=== PATIENT | female | born 1955 | race Caucasian/White ===

== ENCOUNTER 2017-05-23 13:39 | Inpatient (IN) | payer MEDICAID ==
[2017-05-23 14:22] LABS: % IMMATURE GRANULYOCYTES 0.5 % (0.0-1.1); ABSOLUTE IMMATURE GRANULOCYTES 0.04 10^3/uL (0.00-0.10); ADD DIFF? NO; ADD MORPH? NO; ADD SCAN? NO; ATYPICAL LYMPHOCYTE FLAG 0 (0-99); FRAGMENT RBC FLAG 20 (0-99); HEMATOCRIT 43.5 % (38.0-47.0); HEMOGLOBIN 13.1 g/dL (12.6-16.3); LEFT SHIFT FLG 0 (0-99); LIPEMIA HEMOLYSIS FLAG 80 (0-99); MEAN CELL HEMOGLOBIN CONCENTR. 30.1 g/dL (32.4-36.7); MEAN CELL VOLUME 73.1 fL (81.5-99.8); MEAN PLATELET VOLUME 8.6 fL (8.7-11.7); PLATELET CLUMPS FLAG 20 (0-99); PLATELET COUNT 373 10^3/uL (150-400); RED BLOOD CELL COUNT 5.95 10^6/uL (4.18-5.33); RED CELL DISTRIBUTION WIDTH 18.6 % (11.5-15.2)
[2017-05-23] MEDS ORDERED: ONDANSETRON 4 MG/2 ML VIAL IVP ONE (14:31)
--- NOTE | 2017-05-23 14:31 | EDPHY ---
General - History Smoking Status: Former smoker Narrative: CHIEF COMPLAINT: Nausea, abdominal pain HISTORY OF PRESENT ILLNESS: Patient complains of several days of abdominal pain and nausea. She cannot tell me when this started. She says it has been nonstop, constant. Moderate to severe. The nausea is intractable. No vomiting though. Subjective fever. No chest pain. No shortness of breath. No urinary complaints no trauma or injury. Patient has very poor historian and cannot provide any other details of her complaint. She arrives by EMS. REVIEW OF SYSTEMS: Ten systems reviewed and are negative unless otherwise noted in the HPI PAST MEDICAL HISTORY: Extensive. Reviewed PAST SURGICAL HISTORY: Patient does not recall her surgical history SOCIAL HISTORY: Nonsmoker. Previous in addition to pain medication on methadone. Resides at [facility] in assisted living FAMILY HISTORY: Noncontributory EXAMINATION General Appearance: Alert, no distress Head: normocephalic, atraumatic Eyes: Pupils equal and round, no conjunctival pallor or injection ENT, Mouth: Mucous membranes moist. Airway patent. Uvula midline Neck: Normal inspection, supple, non-tender Respiratory: Lungs are clear to auscultation. No wheezing, rhonchi or crackles Cardiovascular: Regular rate and rhythm. Gastrointestinal: Abdomen is soft and nondistended. There is tenderness in the epigastrium and upper quadrants. No guarding. No distention. No tympany. No rigidity. Back: non-tender, no bony abnormalities Neurological: Alert to person, place and time. Disoriented to scenario. Nonfocal. Strength symmetric Skin: Warm and dry, no rash no petechiae or purpura Extremities: Nontender, no pedal edema Psychiatric: Mood and affect normal DIFFERENTIAL DIAGNOSES: Including but not limited to pancreatitis, colitis, diverticulitis, enteritis, gastritis, cholecystitis, cholelithiasis MDM: 2:30 p.m. Abdominal pain and the patient with history of pancreatitis. She is guarding the epigastrium, thus I have ordered CT scan abdomen and pelvis. She is in no acute distress. 3:30 p.m. Patient re-evaluated. She has been asking multiple times for nausea medication. I have not ordered any as she has a borderline prolonged QT on the monitor as well as having received 3 doses of Zofran within the past 6 hours. 4:30 p.m. Case discussed with radiologist Dr. Albarran. CT findings as documented in his note were discussed. This includes new common bile duct dilatation of uncertain etiology. Patient continues to complain of nausea but no active vomiting. Vital signs remained stable. Given the chronic appearance, ongoing pain I will discuss with hospitalist for admission after troponin results. 4:55 p.m. Patient continues to complain of nausea. She has had max dose of Zofran as well as promethazine. Troponin is negative. She remains awake alert no acute distress. Given ongoing pain and nausea, CBD dilatation, I will proceed with admission to the hospital from the ER for pain control and nausea control and further workup of common bile duct dilatation. 5:04 p.m. Case discussed with Dr. Mckenzie. Patient has been admitted to her service. She recommends GI consultation. I agree with this and GI has been paged. 5:35 p[address] At this time Dr. Bradley will assume care of the patient. This is pending GI consultation. The patient has already been admitted in stable condition pain EKG interpretation: Dr. Bradley (Sanjay Butler) Medical Decision Making: I evaluated and participated in the management of the patient. I also evaluated the patient independently. My co-signature indicates that I have reviewed this chart and I agree with the findings and plan of care as documented. My personal H&P findings include: 61-year-old female with a history of chronic pancreatitis on methadone as well as morphine for pain presents with difficult to control nausea. She has received Zofran, Phenergan and Ativan in the emergency department had received Compazine prior to admission. On examination the patient has mild epigastric tenderness to deep palpation with no guarding or rebound. Laboratory evaluation demonstrates a normal lipase and normal liver function test. CT scan demonstrates increased size of the common bile duct which may be consistent with status post cholecystectomy versus stricture at the pappilla. Patient's course was discussed with the hospitalist service. It was also discussed with Dr. Uriah Ferguson from Gastroenterology. Given the patient's difficult to control symptoms, she was admitted to the hospital for further evaluation as well as treatment of her nausea, abdominal pain, and IV hydration. (Crystal Bradley) - Objective Vital Signs: Initial Vital Signs Temperature (C) 100.0 F 05/23/17 13:45 Heart Rate 75 05/23/17 13:45 Respiratory Rate 22 H 05/23/17 13:45 Blood Pressure 188/102 H 05/23/17 13:45 O2 Sat (%) 94 05/23/17 13:45 O2 Delivery Mode Room Air O2 (L/minute) 2 Allergies/Adverse Reactions: Penicillins Allergy (Unknown, Verified 02/16/16 18:52) Sulfa (Sulfonamide Antibiotics) Allergy (Unknown, Verified 02/16/16 18:52) Home Medications: Medication Instructions Recorded Acetaminophen [Tylenol 325mg (*)] 650 mg PO Q6 PRN 05/23/17 Baclofen [Baclofen 10 mg (*)] 10 mg PO QID PRN 05/23/17 Bisacodyl [Bisacodyl (*)] 10 mg PO PRN PRN 05/23/17 Bisacodyl [Dulcolax] 10 mg RC DAILY PRN 05/23/17 Calcium Carbonate [Tums 500MG (*)] 1,000 mg PO DAILY PRN 05/23/17 Cetirizine [ZyrTEC 10 mg (*)] 10 mg PO DAILY PRN 05/23/17 Fluticasone Nasal [Flonase Nasal 2 sprays NASAL BID PRN 05/23/17 [place] (RX)] Furosemide [Lasix 20 MG (*)] 20 mg PO DAILY 05/23/17 LORazepam [Lorazepam] 1 mg PO Q4 PRN 05/23/17 Loperamide HCl [Loperamide] 2 mg PO PRN PRN 05/23/17 Lubiprostone [Amitiza 24 mcg (*)] 24 mcg PO BID PRN 05/23/17 Methadone HCl [Methadone 5 mg (*)] 40 mg PO TID 05/23/17 Methadone HCl [Methadone HCl 10 mg 25 mg TX TID PRN 05/23/17 (*)] Methenamine Mandelate [METHENAMINE 0.5 gm PO BID PRN 05/23/17 MANDELATE] Nystatin Powder [Mycostatin Powder 1 davis PAREN TID PRN 05/23/17 (RX)] Omeprazole [Prilosec 20 mg] 40 mg PO DAILY 05/23/17 Ondansetron Odt [Zofran Odt 4 mg 4 mg PO Q4 PRN 05/23/17 (*)] Polyethylene Glycol 3350 [Miralax 17 gm PO BID 05/23/17 17 gm (*)] Polyvinyl Alcohol [Artificial 1 drop EACHEYE QID PRN 05/23/17 Tears] Prochlorperazine Maleate 10 mg PO Q6 PRN 05/23/17 [Compazine 10mg (*)] Sennosides/Docusate Sodium 2 each PO BID 05/23/17 [Senokot-S (OTC)] Sertraline HCl [Zoloft 50mg (*)] 50 mg PO HS 05/23/17 Zolpidem Tartrate [Ambien 5MG (*)] 5 mg PO HS 05/23/17 guaiFENesin [Guaifenesin] 400 mg PO Q4 PRN 05/23/17 morphINE IR [morphINE IR 30 mg (*)] 60 mg PO Q3 PRN 05/23/17 Laboratory Results: Laboratory Results 05/23/17 14:10 05/23/17 14:10 Medications Given: Baclofen (Baclofen) 10 mg PO QID PRN PRN Reason: MUSCLE SPASMS Stop: 11/19/17 19:50 Last Admin: 05/24/17 16:07 Dose: 10 mg Cetirizine HCl (Zyrtec) 10 mg PO DAILY PRN PRN Reason: ALLERGY Stop: 11/19/17 19:50 Last Admin: 05/24/17 16:07 Dose: 10 mg Enoxaparin Sodium (Lovenox) 40 mg SC DAILY [facility] Stop: 11/20/17 08:59 Last Admin: 05/24/17 09:11 Dose: 40 mg Fluticasone Propionate (Flonase Nasal [place]) 2 sprays NS BID PRN PRN Reason: ALLERGIES Stop: 11/19/17 19:50 Last Admin: 05/24/17 09:11 Dose: 1 spray Sodium Chloride (Ns) 1,000 mls @ 125 mls/hr IV CONT FIDEL Stop: 11/19/17 17:29 Last Admin: 05/24/17 12:10 Dose: 1,000 mls Lorazepam (Ativan) 1 mg PO Q4 PRN PRN Reason: Agitation Stop: 11/19/17 19:50 Last Admin: 05/23/17 20:24 Dose: 1 mg Methadone HCl (Methadone Hcl) 40 mg PO TID FIDEL Stop: 06/02/17 21:59 Last Admin: 05/24/17 16:07 Dose: 40 mg Morphine Sulfate (Morphine) 1 - 2 mg IVP Q4HRS PRN PRN Reason: Pain, Severe Unable to Take PO Stop: 06/02/17 17:18 Last Admin: 05/24/17 12:10 Dose: 2 mg Ondansetron HCl (Zofran) 4 mg IVP Q4HRS PRN PRN Reason: Nausea/Vomiting, Can't Take PO Stop: 11/19/17 17:18 Last Admin: 05/23/17 19:41 Dose: 4 mg Pantoprazole Sodium (Protonix) 40 mg PO DAILY FIDEL Stop: 11/20/17 08:59 Last Admin: 05/24/17 16:07 Dose: 40 mg Polyethylene Glycol (Miralax) 17 gm PO BID FIDEL Stop: 11/19/17 20:59 Last Admin: 05/23/17 20:52 Dose: Not Given Senna/Docusate Sodium (Senokot-S) 2 tab PO BID FIDEL Stop: 11/19/17 20:59 Last Admin: 05/23/17 20:24 Dose: 2 tab Sertraline HCl (Zoloft) 50 mg PO HS FIDEL Stop: 11/19/17 20:59 Last Admin: 05/23/17 20:24 Dose: 50 mg Zolpidem Tartrate (Ambien) 5 mg PO HS [facility] Stop: 11/19/17 20:59 Last Admin: 05/23/17 20:24 Dose: 5 mg Discontinued Medications Sodium Chloride (Ns) 500 mls @ 500 mls/hr IV ONCE ONE Stop: 05/23/17 17:26 Last Admin: 05/23/17 16:28 Dose: 500 mls Potassium Chloride (Potassium Cl 10 Meq (Premix)) 100 mls @ 100 mls/hr IV Q1H FIDEL Stop: 05/23/17 23:09 Last Admin: 05/23/17 23:17 Dose: 100 mls Potassium Chloride (Potassium Cl 10 Meq (Premix)) 100 mls @ 50 mls/hr IV Q2H FIDEL Stop: 05/24/17 13:35 Last Admin: 05/24/17 13:09 Dose: 100 mls Lorazepam (Ativan Injection) 0.5 mg IVP EDNOW ONE Stop: 05/23/17 16:41 Last Admin: 05/23/17 16:59 Dose: 0.5 mg Morphine Sulfate (Morphine) 2 mg IVP EDNOW ONE Stop: 05/23/17 14:32 Last Admin: 05/23/17 14:44 Dose: 2 mg Ondansetron HCl (Zofran) 4 mg IVP EDNOW ONE Stop: 05/23/17 14:32 Last Admin: 05/23/17 14:43 Dose: 4 mg Promethazine HCl (Phenergan) 12.5 mg IVP ONCE ONE Stop: 05/23/17 16:23 Last Admin: 05/23/17 16:28 Dose: 12.5 mg Departure - Departure Disposition: [facility] Acute Clinical Impression: Epigastric pain, Nausea, Common bile duct dilatation Condition: Good
[2017-05-23 14:42] LABS: ALANINE AMINOTRANSFERASE 25 IU/L (9-52); ALBUMIN 5.6 g/dL (3.5-5.0); ALKALINE PHOSPHATASE 109 IU/L (38-126); ANION GAP 27 mEq/L (8-16); ASPARTATE AMINOTRANSFERASE 35 IU/L (14-46); BILIRUBIN,TOTAL 0.9 mg/dL (0.1-1.4); BILIRUBIN-CONJUGATED 0.4 mg/dL (0.0-0.5); BILIRUBIN-UNCONJUGATED 0.5 mg/dL (0.0-1.1); CARBON DIOXIDE 17 mEq/l (22-31); CHLORIDE 93 mEq/L (97-110); GLOMERULAR FILTRATION RATE 56; GLUCOSE 138 mg/dL (70-100); POTASSIUM 3.4 mEq/L (3.5-5.2); SODIUM 137 mEq/L (134-144); TOTAL PROTEIN 9.3 g/dL (6.3-8.2)
[2017-05-23] MEDS ORDERED: IOPAMIDOL (ISOVUE-300) 100 ML BTL ONE (15:12)
[2017-05-23 15:34] LABS: COLOR YELLOW; LEUKOCYTE ESTERASE,URINE NEGATIVE (NEGATIVE); NITRITE,URINE NEGATIVE (NEGATIVE)
[2017-05-23] MEDS ORDERED: PROMETHAZINE HCL 25 MG/ML INJ IVP ONE (16:22)
[2017-05-23] MEDS ORDERED: NS 500 ML IV ONE (16:27)
--- NOTE | 2017-05-23 16:31 | CPEKG ---
Heart Rate: 76 RR Interval: 789 P-R Interval: 180 QRSD Interval: 98 QT Interval: 436 QTC Interval: 491 P Erie: 84 QRS Erie: 74 T Wave Erie: -57 EKG Severity - ABNORMAL ECG - EKG Impression: SINUS RHYTHM EKG Impression: PROBABLE LEFT ATRIAL ABNORMALITY EKG Impression: BORDERLINE REPOL ABNORMALITY, DIFFUSE LEADS EKG Impression: BORDERLINE PROLONGED QT INTERVAL Electronically Signed By: Ryan Gilman 24-May-2017 12:20:46
[2017-05-23] MEDS ORDERED: LORazepam 2 MG/ML INJ IVP ONE (16:40)
[2017-05-23] MEDS ORDERED: ACETAMINOPHEN 650 MG SUPP PR PRN (17:19)
[2017-05-23] MEDS ORDERED: ONDANSETRON DISINTEGRATING 4 MG TAB PO PRN (17:19)
[2017-05-23] MEDS: NS 1,000 ML IV SCH (19:40)
[2017-05-23] MEDS: ONDANSETRON 4 MG/2 ML VIAL IVP PRN (19:41)
[2017-05-23] MEDS ORDERED: BISACODYL 10 MG SUPP PR PRN (19:51)
[2017-05-23] MEDS ORDERED: LUBIPROSTONE 24 MCG CAP PO PRN (19:51)
[2017-05-23] MEDS ORDERED: FLUTICASONE NASAL 120 SPRAYS/16 GM MDI NS PRN (19:51)
[2017-05-23] MEDS ORDERED: guaiFENesin 200 MG/10 ML UDL PO PRN (19:51)
[2017-05-23] MEDS ORDERED: morphINE IR 30 MG TAB PO PRN (19:51)
[2017-05-23] MEDS ORDERED: BISACODYL 5 MG EC TAB PO PRN (19:51)
[2017-05-23] MEDS ORDERED: NYSTATIN POWDER 15 GM BTL TP PRN (19:51)
[2017-05-23] MEDS ORDERED: CETIRIZINE 10 MG TAB PO PRN (19:51)
[2017-05-23] MEDS ORDERED: CALCIUM CARBONATE 500 MG CHEWABLE TAB PO PRN (19:51)
[2017-05-23] MEDS ORDERED: TEARS/DEXTRAN 70/HYPROMELLOSE 15 ML OPHT.BTL EACHEYE PRN (20:02)
[2017-05-23] MEDS ORDERED: PROTOCOL POTASSIUM 1 DOSE MISC PRN (20:07)
[2017-05-23] MEDS: LORazepam 1 MG TAB PO PRN (20:24)
[2017-05-23] MEDS: ZOLPIDEM TARTRATE 5 MG TAB PO SCH (20:24)
[2017-05-23] MEDS: METHADONE HCL 10 MG TAB PO SCH (20:24)
[2017-05-23] MEDS: SENNOSIDES/DOCUSATE SODIUM TAB PO SCH (20:24)
[2017-05-23] MEDS: POTASSIUM Cl (KCl) 100 ML IV SCH ×3 (20:24→23:17)
[2017-05-23] MEDS: SERTRALINE HCL 50 MG TAB PO SCH (20:24)
[2017-05-23] MEDS: POLYETHYLENE GLYCOL 3350 17 GM PKT PO SCH (20:52)
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
[2017-05-23 20:57] LABS: % SATURATION 6 % (20-55); TOTAL IRON BINDING CAPACITY 590 ug/dL (260-490)
[2017-05-23 21:21] LABS: FERRITIN - BCH 9.6 ng/mL (6.2-264.0)
[2017-05-23 21:55] LABS: POTASSIUM 3.5 mEq/L (3.5-5.2)
[2017-05-24] MEDS: NS 1,000 ML IV SCH ×2 (03:28→12:10)
[2017-05-24 05:38] LABS: % IMMATURE GRANULYOCYTES 0.5 % (0.0-1.1); ABSOLUTE IMMATURE GRANULOCYTES 0.03 10^3/uL (0.00-0.10); ADD DIFF? NO; ADD MORPH? NO; ADD SCAN? NO; ATYPICAL LYMPHOCYTE FLAG 10 (0-99); FRAGMENT RBC FLAG 0 (0-99); HEMATOCRIT 32.1 % (38.0-47.0); HEMOGLOBIN 9.3 g/dL (12.6-16.3); LEFT SHIFT FLG 0 (0-99); LIPEMIA HEMOLYSIS FLAG 70 (0-99); MEAN CELL VOLUME 76.1 fL (81.5-99.8); MEAN PLATELET VOLUME 8.8 fL (8.7-11.7); PLATELET CLUMPS FLAG 0 (0-99); PLATELET COUNT 267 10^3/uL (150-400); RED BLOOD CELL COUNT 4.22 10^6/uL (4.18-5.33)
[2017-05-24 05:59] LABS: ALANINE AMINOTRANSFERASE 24 IU/L (9-52); ALBUMIN 3.3 g/dL (3.5-5.0); ALKALINE PHOSPHATASE 56 IU/L (38-126); ANION GAP 8 mEq/L (8-16); ASPARTATE AMINOTRANSFERASE 19 IU/L (14-46); BILIRUBIN,TOTAL 0.5 mg/dL (0.1-1.4); CALCIUM 9.5 mg/dL (8.5-10.4); CARBON DIOXIDE 25 mEq/l (22-31); CHLORIDE 104 mEq/L (97-110); CREATININE 0.8 mg/dL (0.6-1.0); GLOMERULAR FILTRATION RATE > 60; GLUCOSE 80 mg/dL (70-100); POTASSIUM 3.7 mEq/L (3.5-5.2); SODIUM 137 mEq/L (134-144); TOTAL PROTEIN 5.7 g/dL (6.3-8.2)
[2017-05-24] MEDS ORDERED: ENOXAPARIN 40 MG/0.4 ML SYR SC SCH (09:00)
[2017-05-24] MEDS ORDERED: PANTOPRAZOLE SODIUM 40 MG TAB PO SCH (09:00)
[2017-05-24] MEDS: POTASSIUM Cl (KCl) 100 ML IV SCH ×2 (10:31→13:09)
[2017-05-24] MEDS ORDERED: PEG 3350/NA SULF,BICARB,CL/KCL (GAVILYTE-G) 4000 ML BTL PO ONE ×2 (11:16→16:30)
[2017-05-24] MEDS ORDERED: GADOBUTROL 10 ML VIAL IVP ONE (14:00)
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
--- NOTE | 2017-05-24 15:48 | ASMTCMCOM ---
CM Note CM Note Notes: Pt resides at [facility] and will return when medically stable. LISA w/f. Date Signed: 05/24/2017 03:47 PM Electronically Signed By:Mary Barrios RN
[2017-05-24] MEDS: BACLOFEN 10 MG TAB PO PRN (16:07)
[2017-05-24] MEDS: METHADONE HCL 10 MG TAB PO SCH ×3 (16:07→21:38)
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
[2017-05-24] MEDS: HYDROmorphONE/DILAUDID 1 MG/ML INJ IVP PRN ×2 (17:32→22:56)
[2017-05-24] MEDS: ONDANSETRON 4 MG/2 ML VIAL IVP PRN ×2 (17:48→21:39)
[2017-05-24] MEDS: LORazepam 1 MG TAB PO PRN (18:11)
[2017-05-24] MEDS: POLYETHYLENE GLYCOL 3350 17 GM PKT PO SCH ×2 (18:30→21:39)
[2017-05-24] MEDS: SENNOSIDES/DOCUSATE SODIUM TAB PO SCH ×2 (18:31→21:38)
[2017-05-24] MEDS: PANTOPRAZOLE SODIUM 40 MG in NS 100 ML IV SCH (18:31)
[2017-05-24] MEDS: SERTRALINE HCL 50 MG TAB PO SCH (21:38)
[2017-05-24] MEDS: ZOLPIDEM TARTRATE 5 MG TAB PO SCH (21:38)
[2017-05-25] MEDS: HYDROmorphONE/DILAUDID 1 MG/ML INJ IVP PRN ×4 (00:57→18:19)
[2017-05-25 07:09] LABS: % IMMATURE GRANULYOCYTES 0.2 % (0.0-1.1); ABSOLUTE IMMATURE GRANULOCYTES 0.01 10^3/uL (0.00-0.10); ADD DIFF? NO; ADD MORPH? YES; ADD SCAN? NO; ATYPICAL LYMPHOCYTE FLAG 0 (0-99); FRAGMENT RBC FLAG 0 (0-99); HEMATOCRIT 30.8 % (38.0-47.0); HEMOGLOBIN 8.9 g/dL (12.6-16.3); LEFT SHIFT FLG 0 (0-99); LIPEMIA HEMOLYSIS FLAG 70 (0-99); MEAN CELL HEMOGLOBIN 22.2 pg (27.9-34.1); MEAN CELL VOLUME 76.8 fL (81.5-99.8); MEAN PLATELET VOLUME 8.6 fL (8.7-11.7); PLATELET CLUMPS FLAG 0 (0-99); PLATELET COUNT 212 10^3/uL (150-400); RED BLOOD CELL COUNT 4.01 10^6/uL (4.18-5.33); RED CELL DISTRIBUTION WIDTH 18.1 % (11.5-15.2)
[2017-05-25 07:13] LABS: MEAN CELL HEMOGLOBIN CONCENTR. 28.9 g/dL (32.4-36.7)
[2017-05-25 07:33] LABS: ALANINE AMINOTRANSFERASE 25 IU/L (9-52); ALBUMIN 2.9 g/dL (3.5-5.0); ALKALINE PHOSPHATASE 51 IU/L (38-126); ANION GAP 8 mEq/L (8-16); ASPARTATE AMINOTRANSFERASE 18 IU/L (14-46); BILIRUBIN,TOTAL 0.5 mg/dL (0.1-1.4); CALCIUM 9.1 mg/dL (8.5-10.4); CARBON DIOXIDE 22 mEq/l (22-31); CHLORIDE 106 mEq/L (97-110); CREATININE 0.8 mg/dL (0.6-1.0); GLOMERULAR FILTRATION RATE > 60; GLUCOSE 78 mg/dL (70-100); POTASSIUM 3.2 mEq/L (3.5-5.2); SODIUM 136 mEq/L (134-144); TOTAL PROTEIN 5.3 g/dL (6.3-8.2)
[2017-05-25 08:25] LABS: ELLIPTOCYTES 1+; HYPOCHROMIA 1+; PLATELET ESTIMATE ADEQUATE (ADEQ)
[2017-05-25] MEDS ORDERED: POTASSIUM Cl (KCl) 40 MEQ in D5W 1/2 NS 1,000 ML IV SCH (08:30)
[2017-05-25] MEDS: PANTOPRAZOLE SODIUM 40 MG in NS 100 ML IV SCH ×2 (08:50→20:07)
[2017-05-25] MEDS: METHADONE HCL 10 MG TAB PO SCH ×3 (09:36→20:46)
[2017-05-25] MEDS: POLYETHYLENE GLYCOL 3350 17 GM PKT PO SCH ×3 (09:41→20:07)
[2017-05-25] MEDS ORDERED: fentaNYL 100 MCG/2 ML INJ ONE (11:20)
[2017-05-25] MEDS ORDERED: PROPOFOL/EMULSION 500 MG/50 ML BOTTLE IV ONE (11:21)
[2017-05-25] MEDS ORDERED: LIDOCAINE 2% 5 ML SDV ONE (11:21)
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
[2017-05-25] MEDS ORDERED: ATROPINE SULFATE 1 MG/10 ML SYR ONE (11:45)
[2017-05-25] MEDS ORDERED: NEOSTIGMINE METHYLSULFATE 3 MG/3 ML SYR ONE (11:45)
[2017-05-25] MEDS ORDERED: epHEDrine SULFATE 10 MG/ML SYR ONE (11:46)
--- NOTE | 2017-05-25 11:48 | POSTOPPROG ---
Post Op Note Date of Operation: 05/25/17 Surgeon: Eder Diamond Anesthesiologist: arlette Anesthesia: Other (Specify) (IV general) Pre-op Diagnosis: anemia Post-op Diagnosis: gastritis Indication: anemia Procedure: egd and bx Findings: nml esoph, nl duodenum, moderate gastritis Inf/Abcess present in the surg proc area at time of surgery?: No EBL: Minimal (few ml) Total fluids administered: 300ml LR Complications: post procedure jo cardia that resolved with intervention stable prior to transfer to PACU
[2017-05-25] MEDS ORDERED: fentaNYL 100 MCG/2 ML INJ IVP PRN (12:09)
[2017-05-25] MEDS ORDERED: NALOXONE HCL 0.4 MG/ML INJ IVP PRN (12:09)
[2017-05-25] MEDS ORDERED: MAGNESIUM CITRATE 300 ML BOTTLE PO ONE (13:31)
--- NOTE | 2017-05-25 13:34 | SOAPPROG ---
SOAP Progress Note Assessment/Plan: see full EGD report esophagus = normal stomach = moderate to severe gastritis s/p bx, no ulcer, no mass duodenum = normal rec: clear liquid diet colon prep Eder Diamond M.D. 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
[2017-05-25] MEDS: SENNOSIDES/DOCUSATE SODIUM TAB PO SCH ×2 (13:44→20:07)
[2017-05-25] MEDS ORDERED: PEG 3350/NA SULF,BICARB,CL/KCL (GAVILYTE-G) 4000 ML BTL PO ONE (14:30)
[2017-05-25] MEDS ORDERED: HYDROmorphONE/DILAUDID 2 MG TAB PO PRN (14:57)
--- NOTE | 2017-05-25 15:11 | HOSPPROG ---
Hospitalist Progress Note Assessment/Plan: Assessment: 61-year-old female presents with acute on chronic abdominal pain in the setting of chronic opiate dependency, acute microcytic anemia and gastritis Plan: 1. Abdominal pain. Acute on chronic, unclear if this is 2/2 gastritis vs. left hip vs. scoliosis vs. functional bowel issues -pain somewhat less today after starting ppi bid -continues to have breakthrough and requesting higher doses of dilaudid, has high tolerance, will symptomatically tx since it is unclear if 2/2 gastritis -CT w/o other structural abnormalities -get hip x-ray L to gauge whether severe OA may be contributing 2. Microcytic anemia. Acute, MCV 76, hemoglobin 8.9, iron studies demonstrating iron deficient component -she has historically been macrocytic -gastritis but no ulcers -patient refused colon prep last night, getting colon prep this afternoon and colonoscopy in AM w/ Dr. Diamond -give IV iron today and tomorrow, then PO 3. Hypercalcemia. Acute, most likely secondary to intravascular depletion, has normalized with IV fluids, most likely not the underlying cause of her abdominal discomfort 4. Chronic pain with continuous opiate dependency. Cont scheduled baseline control w/ baseline, PRN dilaudid for breakthrough 5. Elevated blood pressure. Patient with elevated systolic blood pressure in the setting of pain, treat the pain given that is the underlying cause 6. Metabolic Acidosis. Acute, 2/2 GI losses, resolved w/ IVF 7. Hypokalemia. Replete w/ IVF, monitor Diet. Clears, NPO after MN Prophylaxis. High risk patient, SCDs while she is awaiting procedure Code. Do not resuscitate Disposition. Anticipated discharge 05/26, pending w/u of above. Will return to [facility] at discharge High level medical complexity, high risk of worsening morbidity/mortality 2/2 issues outlined above. Subjective: patient reports ongoing abd pain, migrated over to left hip Objective: Vital Signs Temp Pulse Resp BP Pulse Ox 37.1 C 58 L 16 159/116 H 95 05/25/17 14:00 05/25/17 14:00 05/25/17 14:00 05/25/17 14:00 05/25/17 14:00 Laboratory Results 05/25/17 06:33 05/25/17 06:33 05/24/17 05/25/17 05/26/17 05:59 05:59 05:59 Intake Total 1605 300 Output Total 200 0 Balance 1405 300 - Pending Discharge Pending Discharge Within 24 Hours: Yes Pending Discharge Date: 05/26/17 Pending Discharge Time: 11:00 - Physical Exam Constitutional: chronically ill appearing, obese, uncomfortable, No not in pain (pain in L hip) Cardiovascular: tachycardia, No systolic murmur, No irregularly irregular, No edema Respiratory: no respiratory distress, no rales or rhonchi, clear to auscultation Gastrointestinal: normoactive bowel sounds, no palpable masses, tenderness (mid- epigastric area), distension (mild), No guarding Skin: no rashes or abrasions, no fluctuance, no induration Musculoskeletal: other (pain w/ external and internal rotation L hip, tendernes over L troch bursa, tenderness over L groin/hip, negative straight leg raise) Neurologic: AAOx3, sensation intact bilaterally, No weakness, No facial droop Psychiatric: interacting appropriately, not anxious, not encephalopathic, thought process linear ICD10 Worksheet Patient Problems: Problems Problem Status Onset Essential hypertension Active 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
[2017-05-25] MEDS: LIDOCAINE 5% 1 EA PATCH TD SCH (15:31)
--- NOTE | 2017-05-25 17:17 | PDIAF ---
- Diagnosis Diagnosis: left hip chronic femoral neck fracture Code Status: Do Not Resuscitate - Medication Management Discharge Medications: Medications to Continue on Transfer Acetaminophen [Tylenol 325mg (*)] 650 mg PO Q6 PRN 05/23/17 [Last Taken Unknown] Baclofen [Baclofen 10 mg (*)] 10 mg PO QID PRN 05/23/17 [Last Taken Unknown] Bisacodyl [Bisacodyl (*)] 10 mg PO PRN PRN 05/23/17 [Last Taken Unknown] Bisacodyl [Dulcolax] 10 mg RC DAILY PRN 05/23/17 [Last Taken Unknown] Calcium Carbonate [Tums 500MG (*)] 1,000 mg PO DAILY PRN 05/23/17 [Last Taken Unknown] Cetirizine [ZyrTEC 10 mg (*)] 10 mg PO DAILY PRN 05/23/17 [Last Taken Unknown] Fluticasone Nasal [Flonase Nasal [place] (RX)] 2 sprays NASAL BID PRN 05/23/17 [ Last Taken Unknown] Furosemide [Lasix 20 MG (*)] 20 mg PO DAILY 05/23/17 [Last Taken Unknown] LORazepam [Lorazepam] 1 mg PO Q4 PRN 05/23/17 [Last Taken Unknown] Loperamide HCl [Loperamide] 2 mg PO PRN PRN 05/23/17 [Last Taken Unknown] Lubiprostone [Amitiza 24 mcg (*)] 24 mcg PO BID PRN 05/23/17 [Last Taken Unknown ] Methadone HCl [Methadone 5 mg (*)] 40 mg PO TID 05/23/17 [Last Taken Unknown] Methadone HCl [Methadone HCl 10 mg (*)] 25 mg MS TID PRN 05/23/17 [Last Taken Unknown] Methenamine Mandelate [METHENAMINE MANDELATE] 0.5 gm PO BID PRN 05/23/17 [Last Taken Unknown] Nystatin Powder [Mycostatin Powder (RX)] 1 davis PAREN TID PRN 05/23/17 [Last Taken Unknown] Omeprazole [Prilosec 20 mg] 40 mg PO DAILY 05/23/17 [Last Taken Unknown] Ondansetron Odt [Zofran Odt 4 mg (*)] 4 mg PO Q4 PRN 05/23/17 [Last Taken Unknown] Polyethylene Glycol 3350 [Miralax 17 gm (*)] 17 gm PO BID 05/23/17 [Last Taken Unknown] Polyvinyl Alcohol [Artificial Tears] 1 drop EACHEYE QID PRN 05/23/17 [Last Taken Unknown] Prochlorperazine Maleate [Compazine 10mg (*)] 10 mg PO Q6 PRN 05/23/17 [Last Taken Unknown] Sennosides/Docusate Sodium [Senokot-S (OTC)] 2 each PO BID 05/23/17 [Last Taken Unknown] Sertraline HCl [Zoloft 50mg (*)] 50 mg PO HS 05/23/17 [Last Taken Unknown] Zolpidem Tartrate [Ambien 5MG (*)] 5 mg PO HS 05/23/17 [Last Taken Unknown] guaiFENesin [Guaifenesin] 400 mg PO Q4 PRN 05/23/17 [Last Taken Unknown] morphINE IR [morphINE IR 30 mg (*)] 60 mg PO Q3 PRN 05/23/17 [Last Taken Unknown ] Discharge Medications: Refer to the Discharge Home Medication list for PRN reason. - Orders Activity/Weight Bearing Restrictions: wbat. rom as tolerated. no restrictions. f/u prn with ortho - Follow Up Care Current Providers and Referrals: JOB ESTRELLA [Primary Care Provider] - As per Instructions
[2017-05-25] MEDS: SODIUM FERRIC GLUCONAT/SUCROSE 125 MG in NS 100 ML IV SCH (17:31)
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
[2017-05-25] MEDS: SERTRALINE HCL 50 MG TAB PO SCH (20:07)
[2017-05-25] MEDS: ZOLPIDEM TARTRATE 5 MG TAB PO SCH (20:07)
[2017-05-25] MEDS: PATCH REMOVAL 1 EA PATCH TD SCH (20:14)
[2017-05-26] MEDS: HYDROmorphONE/DILAUDID 1 MG/ML INJ IVP PRN (03:46)
[2017-05-26 05:14] LABS: % IMMATURE GRANULYOCYTES 0.2 % (0.0-1.1); ABSOLUTE IMMATURE GRANULOCYTES 0.01 10^3/uL (0.00-0.10); ADD DIFF? NO; ADD MORPH? YES; ADD SCAN? NO; ATYPICAL LYMPHOCYTE FLAG 0 (0-99); FRAGMENT RBC FLAG 0 (0-99); HEMATOCRIT 33.7 % (38.0-47.0); HEMOGLOBIN 9.6 g/dL (12.6-16.3); LEFT SHIFT FLG 0 (0-99); LIPEMIA HEMOLYSIS FLAG 70 (0-99); MEAN CELL VOLUME 77.3 fL (81.5-99.8); MEAN PLATELET VOLUME 8.7 fL (8.7-11.7); PLATELET CLUMPS FLAG 0 (0-99); PLATELET COUNT 219 10^3/uL (150-400); RED BLOOD CELL COUNT 4.36 10^6/uL (4.18-5.33)
[2017-05-26 05:19] LABS: MEAN CELL HEMOGLOBIN CONCENTR. 28.5 g/dL (32.4-36.7)
[2017-05-26 05:29] LABS: ALANINE AMINOTRANSFERASE 24 IU/L (9-52); ALBUMIN 3.2 g/dL (3.5-5.0); ALKALINE PHOSPHATASE 57 IU/L (38-126); ANION GAP 7 mEq/L (8-16); ASPARTATE AMINOTRANSFERASE 18 IU/L (14-46); BILIRUBIN,TOTAL 0.4 mg/dL (0.1-1.4); CALCIUM 9.5 mg/dL (8.5-10.4); CARBON DIOXIDE 25 mEq/l (22-31); CHLORIDE 103 mEq/L (97-110); CREATININE 0.8 mg/dL (0.6-1.0); GLOMERULAR FILTRATION RATE > 60; GLUCOSE 90 mg/dL (70-100); POTASSIUM 3.7 mEq/L (3.5-5.2); SODIUM 135 mEq/L (134-144); TOTAL PROTEIN 5.7 g/dL (6.3-8.2)
[2017-05-26 07:50] LABS: PLATELET ESTIMATE ADEQUATE (ADEQ)
[2017-05-26 07:51] LABS: ELLIPTOCYTES 1+; HYPOCHROMIA 1+; SCHISTOCYTES 1+
[2017-05-26] MEDS: LIDOCAINE 5% 1 EA PATCH TD SCH (08:11)
[2017-05-26] MEDS: METHADONE HCL 10 MG TAB PO SCH ×3 (08:12→21:56)
[2017-05-26] MEDS: PANTOPRAZOLE SODIUM 40 MG in NS 100 ML IV SCH (08:12)
[2017-05-26] MEDS: SENNOSIDES/DOCUSATE SODIUM TAB PO SCH ×2 (08:13→20:02)
[2017-05-26] MEDS: POLYETHYLENE GLYCOL 3350 17 GM PKT PO SCH ×2 (08:13→20:03)
[2017-05-26] MEDS: LORazepam 1 MG TAB PO PRN (09:04)
[2017-05-26] MEDS: SODIUM FERRIC GLUCONAT/SUCROSE 125 MG in NS 100 ML IV SCH (09:04)
[2017-05-26 11:31] VITALS: RESP 16
--- NOTE | 2017-05-26 13:08 | ASMTCMCOM ---
CM Note CM Note Notes: Spoke w/, pt will dc back to [facility] on 05/27, Jodi at notified. Date Signed: 05/26/2017 01:07 PM Electronically Signed By:Mary Barrios RN
[2017-05-26] MEDS ORDERED: SERTRALINE HCL 50 MG TAB PO SCH (13:25)
--- NOTE | 2017-05-26 13:31 | SOAPPROG ---
SOAP Progress Note Assessment/Plan: Assessment: 61-year-old female presents with acute on chronic abdominal pain in the setting of chronic opiate dependency, acute microcytic anemia and gastritis Plan: 1. Abdominal pain. Acute on chronic, unclear if this is 2/2 gastritis vs. left hip fracture vs. scoliosis vs. functional bowel issues -continues to have breakthrough pain and requesting higher doses of dilaudid, has high tolerance, will symptomatically tx since it is unclear if 2/2 gastritis -CT w/o other structural abnormalities -discussed care plan with GI Dr Diamond, will defer colonoscopy to outpt eval and FU with him in the office -advance diet 2. Microcytic anemia. Acute, MCV 76, hemoglobin stable now, iron studies demonstrating iron deficient component -gastritis but no ulcers on EGD, PPI -patient refused colon prep, will defer and do as outpt -give IV iron given, change to PO at discharge 3. Hypercalcemia. Acute, most likely secondary to intravascular depletion, has normalized with IV fluids 4. Chronic pain with continuous opiate dependency. Cont scheduled baseline control w/ baseline, PRN dilaudid for breakthrough. -patient is on high doses of morphine IR (60mg) at home PRN for breakthrough relief of chronic pain. - adjust morphine IR dose range to 30-60mg PRN -trial gabapentin -discussed pain management in general and strongly suggest FU with ortho to see if any surgical or other interventions could help pain -also suggest pain specialist consult and/or physiatry (like [facility]) as has not seen a specialist per yrs per her report 5. HTN -? because of pain levels, but also sustained high throughout stay -start anti-hypertensive and close FU at [facility] to re-eval/adjust meds as needed 6. Metabolic Acidosis. Acute, 2/2 GI losses, resolved w/ IVF 7. Hypokalemia. Replete w/ IVF, monitor 8. chronic femoral neck fracture -appreciate ortho consult -strongly encouraged her to FU with ortho and consider surgery Diet. advance diet as tolerated Prophylaxis. High risk patient, SCDs/TEDs Code. Do not resuscitate Disposition. Anticipated discharge 05/27, pending w/u of above. Will return to [facility] at discharge Subjective: Unable to tolerate colonoscopy prep overnt, says caused too much abd pain. Says 'never' has good pain control, has seen multiple pain med specialists prev , but says this is first time seeing ortho (Dr Holm's note revwd). Says was on lyrica for a long time' but stopped it, ? when she was on hospice. Does feel depressed about pain, life and would like to try other options for pain/ depression. Objective: Vital Signs Temp Pulse Resp BP Pulse Ox 99.3 F 71 16 187/95 H 92 05/26/17 11:28 05/26/17 11:28 05/26/17 11:28 05/26/17 11:42 05/26/17 11:28 Laboratory Results 05/26/17 04:29 05/26/17 04:29 05/25/17 05/26/17 05/27/17 11:59 11:59 11:59 Intake Total 1605 1815 Output Total 200 600 Balance 1405 1215 - Pending Discharge Pending Discharge Within 24 Hours: Yes Pending Discharge Date: 05/27/17 Pending Discharge Time: 11:00 Physical Exam - Physical Exam General Appearance: alert, no apparent distress Respiratory: lungs clear, normal breath sounds Cardiac/Chest: regular rate, rhythm, No edema Abdomen: soft, other (mildly tender throughout), No guarding, No rebound Neuro/Psych: alert, depressed affect ICD10 Worksheet Patient Problems: Problems Problem Status Onset Common bile duct dilatation Acute Epigastric pain Acute Nausea Acute Altered mental status Active Essential hypertension Active Hyponatremia Active 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
--- NOTE | 2017-05-26 13:49 | SOAPPROG ---
SOAP Progress Note Assessment/Plan: see full EGD report esophagus = normal stomach = moderate to severe gastritis s/p bx, no ulcer, no mass duodenum = normal rec: clear liquid diet colon prep Eder Diamond M.D. 05/26/17 13:47 A/P 1) iron def anemia - EGD with some findings that could account for her anemia, but needs colon - eating solid food so colon will be as outpt she will be going home tomorrow Subjective: CC- iron def anemia pt denies abdo pain, eating solid food had colon 8 years ago in [place] and reports was nml Objective: Vital Signs Temp Pulse Resp BP Pulse Ox 37.4 C 71 16 187/95 H 92 05/26/17 11:28 05/26/17 11:28 05/26/17 11:28 05/26/17 11:42 05/26/17 11:28 Laboratory Results 05/26/17 04:29 05/26/17 04:29 05/25/17 05/26/17 05/27/17 05:59 05:59 05:59 Intake Total 1605 1815 Output Total 200 400 200 Balance 1405 1415 -200 CTA S1S2 +BS, soft nt ICD10 Worksheet Patient Problems: Problems Problem Status Onset Common bile duct dilatation Acute Epigastric pain Acute Nausea Acute Altered mental status Active Essential hypertension Active Hyponatremia Active 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
[2017-05-26] MEDS: GABAPENTIN 100 MG CAP PO SCH ×3 (14:50→21:56)
[2017-05-26] MEDS: PANTOPRAZOLE SODIUM 40 MG TAB PO SCH (15:25)
[2017-05-26] MEDS ORDERED: MICONAZOLE NITRATE 45 GM CRTUBE VG SCH ×2 (15:30→21:00)
[2017-05-26] MEDS: LISINOPRIL 20 MG TAB PO SCH (15:38)
[2017-05-26] MEDS: FLUTICASONE NASAL 120 SPRAYS/16 GM MDI NS SCH (20:08)
[2017-05-26] MEDS: PATCH REMOVAL 1 EA PATCH TD SCH (20:53)
[2017-05-26] MEDS: ZOLPIDEM TARTRATE 5 MG TAB PO SCH (21:56)
[2017-05-27 04:12] VITALS: TEMP 99.1
[2017-05-27] MEDS: BACLOFEN 10 MG TAB PO PRN (06:19)
[2017-05-27 08:21] VITALS: BP 167/99; PULSE 66; O2SAT 94
[2017-05-27] MEDS: LISINOPRIL 20 MG TAB PO SCH (08:34)
[2017-05-27] MEDS: METHADONE HCL 10 MG TAB PO SCH (08:34)
[2017-05-27] MEDS: SENNOSIDES/DOCUSATE SODIUM TAB PO SCH (08:34)
[2017-05-27] MEDS: PANTOPRAZOLE SODIUM 40 MG TAB PO SCH (08:35)
[2017-05-27] MEDS: GABAPENTIN 100 MG CAP PO SCH (08:35)
[2017-05-27] MEDS: LIDOCAINE 5% 1 EA PATCH TD SCH (08:36)
[2017-05-27] MEDS: FLUTICASONE NASAL 120 SPRAYS/16 GM MDI NS SCH (08:42)
[2017-05-27] MEDS: POLYETHYLENE GLYCOL 3350 17 GM PKT PO SCH (08:42)
--- NOTE | 2017-05-27 12:16 | PDIAF ---
- Diagnosis Diagnosis: left hip chronic femoral neck fracture, chronic pain/opioid use Code Status: Do Not Resuscitate - Medication Management Discharge Medications: Medications to Continue on Transfer Acetaminophen [Tylenol 325mg (*)] 650 mg PO Q6 PRN 05/23/17 [Last Taken Unknown] Baclofen [Baclofen 10 mg (*)] 10 mg PO QID PRN 05/23/17 [Last Taken Unknown] Bisacodyl [Bisacodyl (*)] 10 mg PO PRN PRN 05/23/17 [Last Taken Unknown] Bisacodyl [Dulcolax] 10 mg RC DAILY PRN 05/23/17 [Last Taken Unknown] Calcium Carbonate [Tums 500MG (*)] 1,000 mg PO DAILY PRN 05/23/17 [Last Taken Unknown] Cetirizine [ZyrTEC 10 mg (*)] 10 mg PO DAILY PRN 05/23/17 [Last Taken Unknown] Furosemide [Lasix 20 MG (*)] 20 mg PO DAILY 05/23/17 [Last Taken Unknown] LORazepam [Lorazepam] 1 mg PO Q4 PRN 05/23/17 [Last Taken Unknown] Loperamide HCl [Loperamide] 2 mg PO PRN PRN 05/23/17 [Last Taken Unknown] Lubiprostone [Amitiza 24 mcg (*)] 24 mcg PO BID PRN 05/23/17 [Last Taken Unknown ] Methadone HCl [Methadone 5 mg (*)] 40 mg PO TID 05/23/17 [Last Taken Unknown] Methadone HCl [Methadone HCl 10 mg (*)] 25 mg CA TID PRN 05/23/17 [Last Taken Unknown] Methenamine Mandelate [METHENAMINE MANDELATE] 0.5 gm PO BID PRN 05/23/17 [Last Taken Unknown] Nystatin Powder [Mycostatin Powder] 1 davis PAREN TID PRN 05/23/17 [Last Taken Unknown] Omeprazole [Prilosec 20 mg] 40 mg PO DAILY 05/23/17 [Last Taken Unknown] Ondansetron Odt [Zofran Odt 4 mg (*)] 4 mg PO Q4 PRN 05/23/17 [Last Taken Unknown] Polyethylene Glycol 3350 [Miralax 17 gm (*)] 17 gm PO BID 05/23/17 [Last Taken Unknown] Polyvinyl Alcohol [Artificial Tears] 1 drop EACHEYE QID PRN 05/23/17 [Last Taken Unknown] Prochlorperazine Maleate [Compazine 10mg (*)] 10 mg PO Q6 PRN 05/23/17 [Last Taken Unknown] Sennosides/Docusate Sodium [Senokot-S] 2 each PO BID 05/23/17 [Last Taken Unknown] Zolpidem Tartrate [Ambien 5MG (*)] 5 mg PO HS 05/23/17 [Last Taken Unknown] guaiFENesin [Guaifenesin] 400 mg PO Q4 PRN 05/23/17 [Last Taken Unknown] morphINE IR [morphINE IR 30 mg (*)] 60 mg PO Q3 PRN 05/23/17 [Last Taken Unknown ] Acetaminophen [Tylenol Rectal] 650 mg CA Q4HRS PRN supp 05/27/17 [Last Taken Unknown] Fluticasone Nasal [Flonase Nasal [place]] 1 sprays NS BID mdi 05/27/17 [Last Taken Unknown] Gabapentin [Neurontin 100 MG (*)] 100 mg PO TID cap 05/27/17 [Last Taken Unknown] Lidocaine 5% [Lidoderm 5% Patch (*)] 1 ea TD DAILY patch 05/27/17 [Last Taken Unknown] Lisinopril [Zestril 20 mg (*)] 20 mg PO DAILY tab 05/27/17 [Last Taken Unknown] Miconazole Nitrate [Miconazole-7 Vag Cream (*)] 1 gm VG HS crtube 05/27/17 [ Last Taken Unknown] Patch Removal 1 ea TD DAILY21 patch 05/27/17 [Last Taken Unknown] Sertraline HCl [Zoloft 50mg (*)] 100 mg PO HS tab 05/27/17 [Last Taken Unknown] Discharge Medications: Refer to the Discharge Home Medication list for PRN reason. PICC Care - Routine: N/A - Orders Services needed: Registered Nurse, Certified Flat Screen Worker, Physical Therapy, Occupational Therapy Home Care Face to Face: 05/27/2017 Becky Gomez MD Diet Recommendation: no restrictions on diet Diet Texture: Regular Texture Diet Activity/Weight Bearing Restrictions: wbat. rom as tolerated. no restrictions. f/u in office with ortho Dr Holm to discuss surgical options - Follow Up Care Current Providers and Referrals: Brayden Holm MD [Medical Doctor] - follow up in 1 week Eder Diamond MD [Medical Doctor] - follow up in 2 weeks (needs to schedule colonoscopy) JOB ESTRELLA [Primary Care Provider] - 1-2 days (strongly recommend pain management eval, consider physiatry referral ([facility], Dr Osman, etc))
--- NOTE | 2017-05-27 13:27 | GDS ---
[f rep st] DISCHARGE SUMMARY SERVICE: [facility] hospitalist. CONSULTS: Orthopedics, Dr. Marco Antonio Holm; Gastroenterology, Dr. dEer Diamond. PROCEDURES: Chest x-ray, abdominal MRI, hip x-ray. HISTORY AND PHYSICAL: Please see previously dictated note by Dr. Mckenzie. ADMISSION DIAGNOSES: 1. Acute on chronic abdominal pain, likely pancreatitis. 2. Microcytosis. 3. Hypokalemia. 4. Hypertension. 5. Depression. 6. Chronic pain with chronic high-dose opioid use. DISCHARGE DIAGNOSES: 1. Acute on chronic abdominal pain, likely pancreatitis. 2. Microcytosis. 3. Depression. 4. Chronic pain with chronic high-dose opioid use. 5. Chronic left femoral neck fracture. 6. Hypokalemia, resolved. 7. Metabolic acidosis, resolved. 8. Hypertension. 9. Hypercalcemia, resolved. 10. Microcytic anemia. HOSPITAL COURSE BY PROBLEM LIST: 1. Acute on chronic abdominal pain. She was admitted to the hospital because of acute on chronic ab dominal pain. Pain medications were adjusted; she is on chronic pain medications as an outpatient. Gastroenterology was asked to consult and recommended EGD and colonoscopy. EGD was done on 7 which showed gastritis and biopsies were done. Still pending at time of discharge. Colonoscopy pr ep was ordered; however, she was unable to tolerate the prep and a colonoscopy was not performed. Dr Keenan Diamond recommended trying to schedule this as an outpatient and did not feel it was necessary prior to discharge. Over the course of her stay, her diet was gradually advanced and on the day of discha rge, she was tolerating a diet without any abdominal pain. She was continued on proton pump inhibito r. Should follow up with Dr. Diamond as an outpatient and can review surgical path reports when avail able at that appointment. 2. Microcytic anemia. She was noted to have microcytosis without anemia on admission with a hemoglo bin of 13.1 and an MCV of 73.1. There were no other recent CBCs to compare to. After IV fluids and n.p.o. because of her GI issues, she was noted to have a hemoglobin of 9.3 with an MCV of 76.1. This was followed for stability and did remain stable throughout her stay. On the day of discharge, hemo globin is 9.6 with a hematocrit of 33.7, so I suspect that this is chronic for her as there was no ev idence of acute blood loss, with a negative Hemoccult stool x1. GI evaluation was requested. An EGD was performed as above. Colonoscopy was not performed as above. Iron levels were checked and she w as noted to have a low iron of 38. IV iron was given. Will not discharge with oral iron at this diana e as it can cause some provocation of her GI symptoms. Suggest checking a CBC within a few weeks of discharge and re-evaluate if oral iron is needed. Should follow up with GI as above to complete a GI evaluation. 3. Hypercalcemia. Of note, calcium initially was 12.0. After IV fluids were given, it remained in the normal range at 9.5. Suggest rechecking this as an outpatient. I do not suspect that this was c ontributing to her GI issues as it seemed to be transient, related to hydration. 4. Chronic pain with continuous high opiate use. She consistently was requesting increased pain med ication throughout her stay. She was given IV pain medication briefly while she was n.p.o. for proce dures. Specifically, she was complaining of pain in her left hip and also in her back. Hip x-ray wa s done, and she was found to have a chronic femoral neck fracture. Orthopedic Surgery was asked to johanny vail, and Dr. Holm recommended hip replacement/surgical intervention. At the time of consult, priscila chase declined surgery; however, on the day of discharge, she again wanted to revisit this topic with me. I reviewed the x-ray result extensively with her and strongly recommended that she follow up with O rthopedic Surgery as an outpatient to discuss surgical options. I recommend that she bring a family member with her to this appointment. She seems more interested in considering a surgical option at t his point. Dr. Holm wrote weightbearing as tolerated and no other restrictions in his interagency recommendation and his consult note. I had a long discussion with her about chronic opioid use. Str ongly encouraged her to request a pain management evaluation, even though she has had these in the [facility], as pain management strategies have changed over the years. I have also strongly encouraged her t o consider an appointment with a non linear editor, like spine , Dr. Madeline Osman, to review scoli osis and other options. Have increased her SSRI dose as she was on a very low dose and does admit to depression because of her situation. I have also started gabapentin as an adjunct. Will need close followup with her primary care provider at [facility]. 5. Hypertension. She has had consistently elevated blood pressures throughout her stay, as high as 208/131. I have started an CRISTOBAL inhibitor daily. Recommend rechecking this closely as an outpatient and she will need a repeat creatinine within a few weeks also (which can be done at the same time as her CBC). 6. Metabolic acidosis. This was noted on arrival but resolved after IV fluids. 7. Hypokalemia. This was replaced per protocol, and was stable at discharge. Will need a repeat BM P within a few weeks since just started CRISTOBAL inhibitor. 8. Chronic femoral neck fracture. The patient states she remembers falling about a month ago and ortiz spects that is when the injury occurred. See above for details. I strongly recommend following up w ith Orthopedic Surgery and considering surgical intervention. DISCHARGE MEDICATIONS: Please see separate medication summary. DISCHARGE INSTRUCTIONS: She is going to return to [facility]. Should follow up with Dr. Diamond, Gastroenterology, within a few weeks to discuss abdominal pain and colonoscopy as an outpatient. She will follow up with Dr. Holm, or orthopedist of choice, to discuss surgical intervention for left chronic hip fracture. Should consider Pain Management or Physiatry referral to discuss chronic pain, scoliosis in general. Should have a CBC and a BMP within 2 weeks. /[id number]/MODL
--- NOTE | 2017-05-27 14:18 | ASMTCMCOM ---
CM Note CM Note Notes: Patient cleared medically for DC. Spoke with Lisa. Information regarding discharge, meds and therapy sent. Confirmed reciept of orders.Transport by [place] arranged by [facility]. Attempted to reach Life Partner and Mother by phone but unable to leave message. Discussed with RN who will call report to [facility]. Date Signed: 05/27/2017 02:17 PM Electronically Signed By:Nanette Martinez RN
--- NOTE | 2017-05-27 16:48 | ASDISCHSUM ---
Discharge Information Plan Status:SNF Medically Cleared to Leave: Discharge Date:05/27/2017 02:14 PM CM D/C Disposition:[facility] Facility ADT D/C Disposition:Prison Facility Projected Discharge Date:05/27/2017 11:00 AM Transportation at D/C:Wheelchair Van Discharge Delay Reason: Follow-Up Date:05/27/2017 11:00 AM Discharge Slot: Final Diagnosis: Placement Information Referral Type:*[facility]ci/SNF Referral ID:[id number] Provider Name:Reid Shin/Erinkwiry Address 1:[address] Phone Number: Address 2: Fax Number: [facility] Selection Factors: State:[place] Patient Contact Information Contact Name:PEMA Relationship:Life Partner Address:[address] City:[place] Alternate Phone: State/Zip Code:[place] [address] Email: Financial Information Financial Class: Primary Plan Desc:[employer] [place] Primary Plan Number:[id number] Secondary Plan Desc: Secondary Plan Number: Assessment Information [facility] CM Progress Note CM Note CM Note Notes: Pt resides at [facility] and will return when medically stable. CM w/fKeenan Date Signed: 05/24/2017 03:47 PM Electronically Signed By:Mary Barrios RN [facility] CM Progress Note CM Note CM Note Notes: Spoke w/, pt will dc back to [facility] on 05/27, Jodi at notified. Date Signed: 05/26/2017 01:07 PM Electronically Signed By:Mary Barrios RN [facility] CM Progress Note CM Note CM Note Notes: Patient cleared medically for DC. Spoke with Lisa. Information regarding discharge, meds and therapy sent. Confirmed reciept of orders.Transport by [employer] arranged by [employer]. Attempted to reach Life Partner and Mother by phone but unable to leave message. Discussed with KATI who will call report to [facility]. Date Signed: 05/27/2017 02:17 PM Electronically Signed By:Nanette Martinez RN Intervention Information
--- NOTE | 2017-05-30 11:15 | GIREPORT ---
Count Includes [facility] Surgical Services - Endoscopy Department Patient Name: Parisa Burnett Procedure Date: 05/25/2017 11:05 AM Patient Type: Inpatient Attending MD/ ER Physician: Socorro Kerr Procedure: Upper GI endoscopy Indications: Suspected upper gastrointestinal bleeding in patient with unexplained i remy deficiency anemia Providers: Eliu Diamond MD Medicines: Propofol per Anesthesia Complications: No immediate complications. Estimated blood loss: None. Description of Procedure: After obtaining informed consent, the endoscope was passed under direct vision. Throughout the procedure, the patient's blood pressure, pulse, and oxygen saturations were monitored continuously. The Endoscope was intro duced through the mouth, and advanced to the second part of duodenum. The [facility] er GI endoscopy was accomplished without difficulty. The patient tolerated th e procedure well. Findings: The examined esophagus was normal. Diffuse moderate inflammation characterized by congestion (edema), erythema, friability and granularity was found on the greater curvature of the gastric body and in the gastric antrum. Biopsies were taken with a cold forceps for histology. Estimated blood loss was minimal. The examined duodenum was normal. Estimated Blood Loss: Estimated blood loss was minimal. Post Op Diagnosis: - Normal esophagus. - Gastritis. Biopsied. - Normal examined duodenum. Recommendation: - Await pathology results. - My office will call with the pathology result with 5-7 days. If you have not heard from my off ice by 14, do not assume the pathology is normal, please call [phone] to get the pathology r eults. - Use Protonix (pantoprazole) 40 mg PO daily. - Perform a colonoscopy at appointment to be scheduled. - Return patient to hospital [facility] for ongoing care. - Full liquid diet. Will order more prep for colon. - Thank you for allowing me to help in your patient's care. Do not hesitate to call with any questions. Attending Participation: I personally performed the entire procedure. Dara Nowak M.D Eliu Diamond MD 05/25/2017 3:35:33 PM Number of Addenda: 0 Note Initiated On: 05/25/2017 11:05 AM Total Procedure Duration Time 0 hours 4 minutes 21 seconds [email or web address]
== END 2017-05-27 14:14 | DRG 439 ==
LOC: EDUNIT# → F3E 19:21
PROVIDERS: ADMIT Hospitalist; ATTEND Family Medicine
PROC: 0DB68ZX Excision of Stomach, Via Natural or Artificial Opening Endoscopic, Diagnostic (ICD-10-PCS; principal; 2017-05-25 11:00)
DX: K86.1 Other chronic pancreatitis (principal); R10.13 Epigastric pain; G89.29 Other chronic pain; D50.9 Iron deficiency anemia, unspecified; K29.70 Gastritis, unspecified, without bleeding; I10 Essential (primary) hypertension; R11.0 Nausea; E87.6 Hypokalemia; E83.52 Hypercalcemia; E87.2 Acidosis; S72.002G Fracture of unspecified part of neck of left femur, subsequent encounter for closed fracture with delayed healing; K83.8 Other specified diseases of biliary tract; M41.9 Scoliosis, unspecified; F32.9 Major depressive disorder, single episode, unspecified; F11.20 Opioid dependence, uncomplicated; F17.200 Nicotine dependence, unspecified, uncomplicated; Z87.820 Personal history of traumatic brain injury; Z72.89 Other problems related to lifestyle; Z88.2 Allergy status to sulfonamides; Z88.0 Allergy status to penicillin; Z66 Do not resuscitate
CPT/HCPCS: 96374; 97110-GP; 97116-GP; 97162-GP; 97166-GO; A9585; J0461; J1170; J1650; J2060; J2405; J2550; J2704; J2710; J2916; J3010; Q9967

== ENCOUNTER 2017-09-05 16:05 | Emergency (ER) | payer MEDICAID ==
[2017-09-05 16:15] VITALS: TEMP 98.2
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
[2017-09-05] MEDS ORDERED: LIDOCAINE 5% 1 EA PATCH TD ONE (17:50)
[2017-09-05 17:54] VITALS: BP 144/89; PULSE 81; RESP 20; O2SAT 95
[2017-09-05] MEDS ORDERED: PATCH REMOVAL 1 EA PATCH TD SCH (21:00)
== END 2017-09-05 18:47 | disposition home or self-care (01) ==
LOC: EDUNIT#
DX: M25.552 Pain in left hip (principal); J44.9 Chronic obstructive pulmonary disease, unspecified; I10 Essential (primary) hypertension; G89.29 Other chronic pain; Z87.81 Personal history of (healed) traumatic fracture; Z87.891 Personal history of nicotine dependence

== ENCOUNTER 2017-09-19 14:07 | Emergency (ER) | payer MEDICAID ==
[2017-09-19 14:20] VITALS: TEMP 98.2
--- NOTE | 2017-09-19 14:26 | EDPHY ---
H & P Smoking Status: Former smoker <Yasmani Marquis - Last Filed: 09/19/17 14:43> <Brenton Mercedes - Last Filed: 09/19/17 18:59> Time Seen by Provider: 09/19/17 14:09 HPI/ROS: Chief complaint. Abdominal pain HPI. 62-year-old female here by EMS with complaint of abdominal pain for 2-3 days. She notes right upper quadrant pain that is crampy. She notes some swelling to the right upper quadrant. Nausea but no vomiting or diarrhea. She has had increased frequent bowel movements but not diarrhea. No blood. Denies chest discomfort or shortness of breath. Denies similar symptoms previously. No urinary symptoms. No fever. She was seen yesterday at [facility] and chest x-ray showed cardiomegaly without pneumonia. An abdominal x-ray was consistent with constipation. CBC was normal. No chemistries were performed. ROS Constitutional. no fever/chills, no weakness Eyes. no problems with vision ENT. no sore throat, no nasal drainage Cardiovascular. no chest pain Respiratory. no shortness of breath, no cough Abdominal. Right upper quadrant abdominal pain with nausea . no problems urinating MS. no calf pain/swelling, no neck/back pain, no joint pain Skin. no rash Lymph. no swollen glands Neuro. no headache, no dizziness, no difficulty walking or with speech (Yasmani Marquis) Past Medical/Surgical History: Past medical history seen for hypertension, GERD, traumatic brain injury, depression, pancreatitis, brain aneurysm, COPD (Yasmani Marquis) Social History: Single, nonsmoker, no alcohol (Yasmani Marquis) Physical Exam: General Appearance: Alert well-developed female mild distress vital signs are stable Eyes: Pupils equal and round no pallor or injection. ENT, Mouth: Mucous membranes are moist. Respiratory: There are no retractions, lungs are clear to auscultation. Cardiovascular: Regular rate and rhythm. Gastrointestinal: Abdomen is soft with tenderness right upper quadrant. No masses. Normal bowel sounds Neurological: Awake and alert, sensory and motor exams grossly normal. Skin: Warm and dry, no rashes. Musculoskeletal: Neck is supple nontender. Extremities symmetrical, full range of motion. Psychiatric: Patient is oriented X 3, there is no agitation. (Yasmani Marquis) Constitutional: Initial Vital Signs Temperature (C) 36.8 C 09/19/17 14:00 Heart Rate 65 09/19/17 14:00 Respiratory Rate 16 09/19/17 14:00 Blood Pressure 154/94 H 09/19/17 14:00 O2 Sat (%) 96 09/19/17 14:00 O2 Delivery Mode Room Air Allergies/Adverse Reactions: Penicillins Allergy (Unknown, Verified 09/19/17 14:17) Sulfa (Sulfonamide Antibiotics) Allergy (Unknown, Verified 09/19/17 14:17) Home Medications: Medication Instructions Recorded Acetaminophen [Tylenol 325mg (*)] 650 mg PO Q6 PRN 05/23/17 Baclofen [Baclofen 10 mg (*)] 10 mg PO QID PRN 05/23/17 Bisacodyl [Bisacodyl (*)] 10 mg PO PRN PRN 05/23/17 Bisacodyl [Dulcolax] 10 mg RC DAILY PRN 05/23/17 Calcium Carbonate [Tums 500MG (*)] 1,000 mg PO DAILY PRN 05/23/17 Cetirizine [ZyrTEC 10 mg (*)] 10 mg PO DAILY PRN 05/23/17 Furosemide [Lasix 20 MG (*)] 20 mg PO DAILY 05/23/17 LORazepam [Lorazepam] 1 mg PO Q4 PRN 05/23/17 Loperamide HCl [Loperamide] 2 mg PO PRN PRN 05/23/17 Lubiprostone [Amitiza 24 mcg (*)] 24 mcg PO BID PRN 05/23/17 Methadone HCl [Methadone 5 mg (*)] 40 mg PO TID 05/23/17 Methadone HCl [Methadone HCl 10 mg 25 mg TN TID PRN 05/23/17 (*)] Methenamine Mandelate [METHENAMINE 0.5 gm PO BID PRN 05/23/17 MANDELATE] Nystatin Powder [Mycostatin Powder] 1 davis PAREN TID PRN 05/23/17 Omeprazole [Prilosec 20 mg] 40 mg PO DAILY 05/23/17 Ondansetron Odt [Zofran Odt 4 mg 4 mg PO Q4 PRN 05/23/17 (*)] Polyethylene Glycol 3350 [Miralax 17 gm PO BID 05/23/17 17 gm (*)] Polyvinyl Alcohol [Artificial 1 drop EACHEYE QID PRN 05/23/17 Tears] Prochlorperazine Maleate 10 mg PO Q6 PRN 05/23/17 [Compazine 10mg (*)] Sennosides/Docusate Sodium 2 each PO BID 05/23/17 [Senokot-S] Zolpidem Tartrate [Ambien 5MG (*)] 5 mg PO HS 05/23/17 guaiFENesin [Guaifenesin] 400 mg PO Q4 PRN 05/23/17 morphINE IR [morphINE IR 30 mg (*)] 60 mg PO Q3 PRN 05/23/17 Acetaminophen [Tylenol Rectal] 650 mg TN Q4HRS PRN supp 05/27/17 Fluticasone Nasal [Flonase Nasal 1 sprays NS BID mdi 05/27/17 [place]] Gabapentin [Neurontin 100 MG (*)] 100 mg PO TID cap 05/27/17 Lidocaine 5% [Lidoderm 5% Patch 1 ea TD DAILY patch 05/27/17 (*)] Lisinopril [Zestril 20 mg (*)] 20 mg PO DAILY tab 05/27/17 Miconazole Nitrate [Miconazole-7 1 gm VG HS crtube 05/27/17 Vag Cream (*)] Patch Removal 1 ea TD DAILY21 patch 05/27/17 Sertraline HCl [Zoloft 50mg (*)] 100 mg PO HS tab 05/27/17 Medical Decision Making <Yasmani Marquis - Last Filed: 09/19/17 14:43> - Diagnostics Imaging: Discussed imaging studies w/ physically impaired teacher Radiologist <Brenton Mercedes - Last Filed: 09/19/17 18:59> - Diagnostics Imaging Results: Imaging Impressions Abdomen CT 09/19/17 14:45 Impression: 1. No definite etiology for the patient's symptoms. 2. Constipation. 3. Moderate hiatal hernia. 4. Chronic left femoral neck fracture. 5. Stable mild biliary dilatation, likely related to prior cholecystectomy. 6. Additional findings as above. Procedures: IV normal saline (Yasmani Marquis) ED Course/Re-evaluation: 15:50 I assumed care of this patient at shift change. CT abdomen/pelvis pending. Laboratory results reviewed. Chemistries including liver/lipase within normal limits. 17:[address] Garcia, radiologist. CT unchanged from prior. 17:50 Reassessed patient. (Brenton Mercedes) - Data Points Laboratory Results: Laboratory Results 09/19/17 15:25 09/19/17 15:25 09/19/17 09/19/17 15:25 15:25 WBC 5.31 10^3/uL 10^3/uL (3.80-9.50) RBC 5.10 10^6/uL 10^6/uL (4.18-5.33) Hgb 14.5 g/dL g/dL (12.6-16.3) Hct 45.5 % % (38.0-47.0) MCV 89.2 fL fL (81.5-99.8) MCH 28.4 pg pg (27.9-34.1) MCHC 31.9 g/dL L g/dL (32.4-36.7) RDW 15.9 % H % (11.5-15.2) Plt Count 300 10^3/uL 10^3/uL (150-400) MPV 8.1 fL L fL (8.7-11.7) Neut % (Auto) 59.3 % % (39.3-74.2) Lymph % (Auto) 28.8 % % (15.0-45.0) [place] % (Auto) 8.7 % % (4.5-13.0) Eos % (Auto) 1.7 % % (0.6-7.6) Baso % (Auto) 1.3 % % (0.3-1.7) Nucleat RBC Rel Count 0.0 % % (0.0-0.2) Absolute Neuts (auto) 3.15 10^3/uL 10^3/uL (1.70-6.50) Absolute Lymphs (auto) 1.53 10^3/uL 10^3/uL (1.00-3.00) Absolute Monos (auto) 0.46 10^3/uL 10^3/uL (0.30-0.80) Absolute Eos (auto) 0.09 10^3/uL 10^3/uL (0.03-0.40) Absolute Basos (auto) 0.07 10^3/uL 10^3/uL (0.02-0.10) Absolute Nucleated RBC 0.00 10^3/uL 10^3/uL (0-0.01) Immature Gran % 0.2 % % (0.0-1.1) Immature Gran # 0.01 10^3/uL 10^3/uL (0.00-0.10) Sodium 138 mEq/L mEq/L (135-145) Potassium 4.9 mEq/L mEq/L (3.5-5.2) Chloride 101 mEq/L mEq/L (97-110) Carbon Dioxide 26 mEq/l mEq/l (22-31) Anion Gap 11 mEq/L mEq/L (8-16) BUN 18 mg/dL mg/dL (7-23) Creatinine 0.9 mg/dL mg/dL (0.6-1.0) Estimated GFR > 60 Glucose 95 mg/dL mg/dL (70-100) Calcium 10.9 mg/dL H mg/dL (8.5-10.4) Phosphorus 4.6 mg/dL H mg/dL (2.5-4.5) Total Bilirubin 0.4 mg/dL mg/dL (0.1-1.4) Conjugated Bilirubin 0.2 mg/dL mg/dL (0.0-0.5) Unconjugated Bilirubin 0.2 mg/dL mg/dL (0.0-1.1) AST 30 IU/L IU/L (14-46) ALT 32 IU/L IU/L (9-52) Alkaline Phosphatase 69 IU/L IU/L (38-126) Total Protein 7.1 g/dL g/dL (6.3-8.2) Albumin 4.3 g/dL g/dL (3.5-5.0) Lipase 103 IU/L IU/L (23-300) Medications Given: Discontinued Medications Sodium Chloride (Ns) 1,000 mls @ 0 mls/hr IV EDNOW ONE; Wide Open PRN Reason: Protocol Stop: 09/19/17 14:46 Last Admin: 09/19/17 15:38 Dose: 1,000 mls Departure <Yasmani Marquis - Last Filed: 09/19/17 14:43> <Brenton Mercedes - Last Filed: 09/19/17 18:59> - Departure Disposition: Home, Routine, Self-Care Clinical Impression: Abdominal pain Qualifiers: Abdominal location: right upper quadrant Qualified Code(s): R10.11 - Right upper quadrant pain Condition: Good Instructions: Acute Abdominal Pain (ED) Additional Instructions: Follow-up with your primary doctor within 72 hours. Return to the Emergency Department for worsening pain, fever, severe vomiting, change in character or severity of pain or other worsening of condition. Referrals: Joselo Argueta MD [[facility] Primary Care Provider] - As per Instructions <Yasmani Marquis - Last Filed: 09/19/17 14:43> Report Scribed for: Brenton Mercedes Report Scribed by: Sophy Paredes Date of Report: 09/19/17 Time of Report: 15:52 <Brenton Mercedes - Last Filed: 09/19/17 18:59> Physician Review and Approval Statement: 09/19/17 15:53 Portions of this note were transcribed by an ED scribe. I personally performed the history, physical exam, and medical decision making; and confirm the accuracy of the information in the transcribed note. (Brenton Mercedes)
[2017-09-19] MEDS ORDERED: NS 1,000 ML IV ONE (14:45)
[2017-09-19 15:35] LABS: PLATELET COUNT 300 10^3/uL (150-400)
[2017-09-19] MEDS ORDERED: IOPAMIDOL (ISOVUE-300) 100 ML BTL ONE (16:11)
[2017-09-19 21:05] VITALS: BP 160/90; PULSE 78; RESP 20; O2SAT 95
== END 2017-09-19 20:27 | disposition home or self-care (01) ==
LOC: EDUNIT#
DX: R10.11 Right upper quadrant pain (principal); I10 Essential (primary) hypertension; J44.9 Chronic obstructive pulmonary disease, unspecified; E86.9 Volume depletion, unspecified; Z87.891 Personal history of nicotine dependence
CPT/HCPCS: Q9967

== ENCOUNTER → 2018-12-16 | Outpatient (CLI) | payer MEDICAID | LOC: FIMAGING 11:47 | PROVIDERS: ATTEND Nurse Practitioner Gerontology | DX: M48.061 Spinal stenosis, lumbar region without neurogenic claudication (principal); M41.9 Scoliosis, unspecified; M51.36 Other intervertebral disc degeneration, lumbar region ==